=== PATIENT | male | born 1980 | race Hispanic/Latino ===

== ENCOUNTER 2019-01-01 15:46 | Emergency (ER) | payer SELFPAY ==
[2019-01-01] MEDS ORDERED: Morphine 4 MG/ML VIAL ONE (16:28)
--- NOTE | 2019-01-01 16:50 | RAD ---
PORTABLE CHEST: 01/01/19 HISTORY: Injury. Fall two hours ago. Lungs are clear. The heart and mediastinum appear normal. The osseous structures are unremarkable. IMPRESSION: No acute finding. POS: [facility]
--- NOTE | 2019-01-01 16:51 | RAD ---
LEFT TIBIA AND FIBULA: 01/01/19 Two views. HISTORY: Fall with injury. No evidence of fracture. No osseous abnormality. IMPRESSION: No acute findings. POS: [facility]
--- NOTE | 2019-01-01 16:52 | RAD ---
AP PELVIS 01/01/19 INDICATION: Fall with injury. Bony pelvis is intact. Hips appear intact. IMPRESSION: No acute osseous abnormality identified. POS: [facility]
--- NOTE | 2019-01-01 16:57 | RAD ---
LEFT ANKLE THREE VIEWS 01/01/19 HISTORY: Left ankle injury following a fall off an 8 foot ladder several hours ago with pain and swelling. There is some medial and lateral and anterior soft tissue swelling to level of the ankle. There is a minimally comminuted fracture involving the calcaneus without significant loss of Bohler's angle. The distal tibia and fibula appear intact. IMPRESSION: Marked medial and lateral ankle soft tissue swelling. Evidence for an essentially nondisplaced somewh at comminuted calcaneal fracture. POS: [facility]
--- NOTE | 2019-01-01 17:00 | CT ---
CT CERVICAL SPINE 01/01/19 Multiple axial tomograms obtained through the cervical spine with multiplanar reconstruction. INDICATIONS: Fall with injury to neck. FINDINGS: Cervical vertebrae maintain normal height and alignment. Mild degenerative changes noted in the cervi slime spine, most prominent at C4-5 and C5-6. No evidence of acute fracture. IMPRESSION: No evidence of acute fracture. POS: [facility]
--- NOTE | 2019-01-01 17:07 | CT ---
CT THORACIC SPINE 01/01/19 Multiple axial tomograms obtained through the thoracic spine with multiplanar reconstruction. INDICATIONS: Fall with injury to back. Thoracic vertebrae maintain normal height and alignment. There are mild to moderate degenerative storey ges in the mid to lower thoracic spine with spurring. End plate deformities are noted at several leve ls. No evidence of vertebral body compression or acute fracture identified. IMPRESSION: No acute fracture identified. POS: [facility]
--- NOTE | 2019-01-01 17:15 | CT ---
NONCONTRAST CT LUMBAR SPINE 01/01/19 HISTORY: Patient fell eight foot from a ladder two hours ago. Injury after a fall. FINDINGS: The visualized retroperitoneal structures demonstrate a grossly normal nonenhanced CT appearance. The vertebral body heights are within normal limits. There is a Schmorl's node in the superior end pl ate of the T12 and L3 vertebral bodies. No fracture or subluxation is seen involving the lumbar spine . There is minimal disc bulge at the L3-4 and L4-5 levels which does result in mild effacement of ventr al aspect of the thecal sac at these levels. However, there is no significant central canal or neural foraminal narrowing at any level of the lumbar spine. IMPRESSION: No fracture or subluxation involving the lumbar spine. POS: [facility]
--- NOTE | 2019-01-01 18:54 | CT ---
NONCONTRAST CT LEFT HINDFOOT 01/01/19 HISTORY: Left ankle swelling and pain. Fracture of the calcaneus after falling off a ladder/scaffolding. FINDINGS: There is a markedly comminuted fracture involving the left calcaneus with loss of Bohler's angle and impaction of fracture fragments. There is mild separation of fracture fragments without significant d isplacement of the fracture fragments. No additional fracture is seen involving the hindfoot. No disl ocation is seen. There is subcutaneous soft tissue swelling about the hindfoot. IMPRESSION: 1. Markedly comminuted and mildly impacted fracture involving the calcaneus. There does appear t o be mild widening of the lateral aspect of the subtalar joint. 2. No definite additional fracture is seen involving the hindfoot, and there is no dislocation a ppreciated. 3. Subcutaneous soft tissue swelling. POS: [facility]
== END 2019-01-01 19:04 | disposition home or self-care (01) ==
LOC: ERS 15:46
DX: S92.002A Unspecified fracture of left calcaneus, initial encounter for closed fracture (principal); F17.210 Nicotine dependence, cigarettes, uncomplicated; W17.89XA Other fall from one level to another, initial encounter
CPT/HCPCS: 29515; 71045; 72125; 72128; 72131; 72170; 96374; J2270